=== PATIENT | male | born 1960 | race Caucasian/White ===

== ENCOUNTER 2018-03-13 08:18 | Emergency (ER) | payer OTHER ==
[~2018-03-13] VITALS: Ht 167.6 cm; Wt 81.6 kg
[2018-03-13 08:23] VITALS: Ht 167.6 cm; Wt 81.6 kg
[2018-03-13 09:40] LABS: BILIRUBIN TOTAL 0.5 mg/dL (0.20-1.00); CALCIUM 8.1 mg/dL (8.5-10.1); CARBON DIOXIDE 25.6 mmol/L (21-32); CREATININE SERUM 2.2 mg/dL (0.7-1.3); TOTAL PROTEIN, SERUM 6.8 g/dL (6.4-8.2)
[2018-03-13 09:41] LABS: BASOPHIL % 0.5 % (0-2); PLATELET COUNT 226 x10^3mcL (130-400); RED CELL DISTRIBUTION WIDTH 14.3 % (11.5-14.5)
[2018-03-13 10:01] LABS: POTASSIUM SERUM 3.3 mmol/L (3.5-5.1)
[2018-03-13 10:02] LABS: ALBUMIN 3.3 g/dL (3.4-5.0)
[2018-03-13 10:55] LABS: AMPHETAMINE QUAL UR POSITIVE (See below)
[2018-03-13 11:20] VITALS: BP 141/77
== END 2018-03-13 11:20 | disposition home or self-care (01) ==
LOC: ED 08:18
PROVIDERS: Emergency Medicine
DX: E16.2 Hypoglycemia, unspecified (principal); N28.9 Disorder of kidney and ureter, unspecified; E11.9 Type 2 diabetes mellitus without complications; I10 Essential (primary) hypertension
CPT/HCPCS: 82962; J7030